=== PATIENT | male | born 1980 | race Caucasian/White ===

== ENCOUNTER 2024-09-11 13:48 | Emergency (ER) | payer MEDICAID ==
[~2024-09-11] VITALS: Ht 172.7 cm; Wt 91.0 kg
[2024-09-11 13:58] VITALS: O2SAT 99
[2024-09-11 14:03] VITALS: BP 129/85; PULSE 100; RESP 16; TEMP 98.3; O2SAT 97
[2024-09-11] MEDS: GLUCAGON,HUMAN RECOMBINANT 1MG/VIAL IV ONE (16:16)
== END 2024-09-11 17:10 | disposition home or self-care (01) ==
LOC: ER 13:48
DX: T18.128A Food in esophagus causing other injury, initial encounter (principal); W44.F3XA Food entering into or through a natural orifice, initial encounter
CPT/HCPCS: 99283; 96374; 82962; J1610